=== PATIENT | male | born 1955 | race Caucasian/White ===

== ENCOUNTER → 2017-12-17 | Day surgery (SDC) | payer OTHER ==
[2017-10-31 14:32] VITALS: Ht 175.3 cm; Wt 90.9 kg
[~2017-12-17] VITALS: Ht 175.3 cm; Wt 90.9 kg
[~2017-12-17] MED LIST: ASPCH81X PO; ATOR-24 PO; ATROPINE SULFATE 0.1 MG/ML 5ML SYR IV PRN; BUPIVACAINE 0.5 % 5 MG/1 ML PF 10ML VIAL ONE; CLINDAMYCIN PHOS 150 MG/ML 2 ML VIAL IV SCH; COEN100C7 PO; CYCL10TA6 PO; EpHEDrine SULFATE INJ 50 MG/ML AMP IV PRN; FENTANYL CITRATE INJ 50 MCG/1 ML 2 ML VIAL IV PRN; FENTANYL CITRATE INJ 50 MCG/1 ML 2 ML VIAL ONE; HYDR-3419 PO; LACTATED RINGER'S 1000ML 1,000 ML IV SCH; LEVO125T5 PO; LIDOCAINE HCL 2% 2 ML VIAL (20MG/ML) ONE; LIDOCAINE HCL 2% LOCAL 20 ML VIAL ONE; METO-452 PO; MIDAZOLAM HCL 1 MG/ML 2ML VIAL ONE; MULT-506 PO; ONDANSETRON INJ 2 MG/ML 2 ML VIAL IV PRN; PROPOFOL IV EMULSION 10 MG/ML 20 ML VIAL ONE; SODIUM CHLORIDE 0.9% 1000ML 1,000 ML IV SCH; TRAM-10 PO; VNTHFA/IN INH; ZINC1TAB PO; ZOLP5TAB PO
--- NOTE | 2017-12-17 09:08 | History & Physical Bridge Note ---
H&P Re-Evaluation Bridge Note: I have examined the patient, reviewed the History & Physical and in the interval since the performance of the History & Physical I have noted the following changes of clinical significance: consent obtained .No changes noted
--- NOTE | 2017-12-17 09:09 | Discharge Instructions ---
Discharge Instructions Date of Service Dec 17, 2017. Visit Reason for Visit: Right Wrist Carpal Tunnel Syndrome; Ring Trigger F Discharge Discharge Diagnosis / Problem: same Discharge Goals Goal(s): Decrease discomfort, Improve function Medications Stopped Medications Name(s): fish oil, asa, lipitor stopped x 10 days. Restart Stopped Medication(s): resume all meds Activity Recommendations Activity Limitations: as noted below Lifting Limitations: until after follow-up appointment Exercise/Sports Limitations: until after follow-up appointment May Resume Sexual Activity: after follow-up appointment Shower/Bathe: keep incision dry Driving or Machine Use: resume 1 day after discharge Anesthesia . Post Anesthesia Instructions: If you have had General Anesthesia or IV Sedation: * Do not drive today. * Resume driving when surgeon permits. * Do not make important decisions or sign legal documents today. * Call surgeon for: 1. Temperature elevations greater than 101 degrees F. 2. Uncontrollable pain. 3. Excessive bleeding. 4. Persistent nausea and vomiting. 5. Medication intolerance (nausea, vomiting or rash). * For nausea and vomiting use only clear liquids such as: tea, soda, bouillon until nausea subsides, then gradually increase diet as tolerated. * If you have any concerns or questions, call your surgeon's office. If physician is unavailable and it is an emergency, call 911 or go to the nearest emergency room. . Instructions / Follow-Up Instructions / Follow-Up The following are instructions to follow after minor hand surgery. ACTIVITY RECOMMENDATIONS: * Minimize activity until your first visit after surgery. * No excessive walking, jogging, sports or laboring. * Return to activity is individualized. Most patients are able to return to everyday activities within 2 weeks. * Return to sports or intensive labor usually occurs at 1-2 months. * DRIVING: Driving may be resumed when you feel you have adequate pain control and use of the hand. * BATHING: You may shower or sponge-bathe immediately after surgery. The dressing will need to be covered with a plastic bag or plastic wrap until the dressing is changed on the fourth or fifth day after surgery. Once the dressing has been changed on the fourth or fifth day after surgery, you may shower and get the incision wet. * Wash with regular soap and water. * Do not bathe (submerge the incision), soak, swim or use a hot tub until the incision is completely healed over with normal skin and the doctor has given the OK to proceed. * There is no need to apply any ointments, powders or salves to your incision. * Do not apply alcohol or hydrogen peroxide directly to the incision. Diluted peroxide (50:50 mixture with sterile saline) may be used to clean dried blood from around the incision area. WORK/SCHOOL: * You may return to sedentary work or school when you are feeling comfortable. This is usually 3-7 days after surgery. * Expect increased discomfort with increased activity. Continue to elevate and ice the hand as much as possible. DIET: * Resume previous diet. MEDICATIONS: * You will have a prescription for pain medication and an anti-inflammatory medication after surgery. Use the pain pills for severe pain and the anti-inflammatory for less severe pain. * Once the pain pills have run out, try to use the anti-inflammatory. If this is not effective then contact the office for assistance. * The pain medication may cause nausea, constipation and sleepiness. You should see how they affect you before driving or similar activity. * The anti-inflammatory may cause stomach upset and bleeding. If this occurs, let your doctor know immediately . * Some patients may need blood clot prevention. This can be done with either a pill or a simple shot. Your doctor will advise you on when to begin these medications and how to take them. * Do not take aspirin or other anti-inflammatory products (i.e. Advil or Aleve ) if taking blood thinner medication. * Take a stool softener like Colace or a stimulant like Senokot to prevent constipation. SPECIAL CARE INSTRUCTIONS: ICE: * Do not apply ice directly to the skin. * Use a thin dressing or stockinet between the skin and ice bag. The dressing in place after surgery will suffice. * Apply ice for 20-30 minutes and repeat every 2-4 hours. This is especially important for the first 3-7 days after surgery. * Once the pain improves, use ice as needed. ELEVATION: * Keep your hand elevated at or above the level of your heart as much as possible. * Expect some increased discomfort and swelling if you allow your hand to hang down for any length of time. DRESSING: * Your dressing will be changed 4-5 days after surgery by the physical therapist or physician's bilingual administrative assistant. Leave your dressing intact until this time. * You may then change your dressing daily with clean dry gauze or Band-aids and a soft wrap or stockinet. * Always wash your hands prior to touching the incision area. * Once the stitches are removed, you may leave the wound open to air or cover with a thin bandage. * There is no need to apply any ointments, powders or salves to your incision. * Expect some bloody drainage for the first few days after surgery. * Leave the tape strips in place (if present) for 5-7 days. * The initial dressing after surgery may become soaked with blood or fluid which is normal. You may reinforce your dressing with clean, dry gauze as needed. BRACE: * Bracing is generally not needed after routine hand surgery. THERAPY: * Physical therapy may be prescribed after your surgery. * For carpal tunnel and trigger digit surgery you may begin moving your fingers and wrist immediately after surgery as tolerated. * Be careful to not overuse. * Once the sutures are removed, further range of motion exercises can be performed. * Hand incisions may be very sensitive for a few months after surgery so avoid excessive pressure on the incision. If necessary, use a padded weightlifters' glove. * You may massage the incision with skin cream to make it less sensitive and reduce scarring. * Hand strength usually returns with normal use. * If needed, squeezing a soft sponge or Play-dough may help. * Your doctor will recommend physical therapy if necessary. PROBLEMS/QUESTIONS: * If you have any problems such as severe pain, numbness, tingling or high fevers or if you have any questions, please contact the office at [phone]. * It is not uncommon to have some numbness and tingling after the surgery especially if you have had a nerve block done. This should gradually improve over the first 1- 2 days. If this persists longer or worsens then contact the office. FOLLOW UP VISIT: * If not already scheduled, please call the office at to schedule follow-up appointments for approximately 10 days, 6 weeks and 3 months after surgery. Diet Recommendations Recommended Home Diet: resume previous diet Procedures Procedures Performed: see op note Pending Studies Studies pending at discharge: no Medical Emergencies . Who to Call and When: Medical Emergencies: If at any time you feel your situation is an emergency, please call 911 immediately. . Non-Emergent Contact Non-Emergency issues call your: Specialist Call Non-Emergent contact if: temperature is above 101.5, wound has increased drainage, wound has increased redness, wound has increased pain . . "Provider Documentation" section prepared by Shaji Guzman. .
--- NOTE | 2017-12-17 09:48 | [facility] Post Operative Brief Note ---
Immediate Operative Summary Operative Date Dec 17, 2017. Pre-Operative Diagnosis Right Wrist Carpal Tunnel Syndrome, Right Ring Finger Trigger Finger Post-Operative Diagnosis same Procedure(s) Performed Right Wrist Open Carpal Tunnel Release; Right Ring Trigger Finger Release Surgeon Dr. Ventura Guzman Auto Wrecker Surgeon(s) Jared Liriano PA-C Estimated Blood Loss Trace Findings Consistent with Post-Op Diagnosis Fluids (cc crystalloids) 600cc Specimens none Drains None Anesthesia Type MAC Complication(s) none Disposition Accompanied Pt To Recover: no Overlapping Procedure I was immediately available: during the entire case
[2017-12-17 09:53] VITALS: TEMP 37.3
--- NOTE | 2017-12-17 10:16 | Anesthesia Progress Nt - [facility] ---
Anesthesia Post Op Note Date & Time Dec 17, 2017 at 10:16 Vital Signs Pain Intensity: 0 Vital Signs Past 12 Hours Date Time Temp Pulse Resp B/P (MAP) Pulse Ox O2 Delivery O2 Flow Rate FiO2 12/17/17 09:53 37.3 63 20 125/78 (94) 97 Room Air 12/17/17 08:42 36.2 53 18 131/74 (93) 96 Room Air Notes Mental Status: alert / awake / arousable, participated in evaluation Pt Amnestic to Procedure: Yes Nausea / Vomiting: adequately controlled Pain: adequately controlled Airway Patency, RR, SpO2: stable & adequate BP & HR: stable & adequate Hydration State: stable & adequate Anesthetic Complications: no major complications apparent
[2017-12-17 10:21] VITALS: BP 120/75; PULSE 64; O2SAT 97
--- NOTE | 2017-12-17 10:29 | OPERATIVE REPORT ---
DATE OF OPERATION: 12/17/2017 SURGEON: Shaji Guzman MD ELECTRONICS SCALE TESTER: Jared Liriano PA-C. No resident or fellow available. PREOPERATIVE DIAGNOSES: 1. Right carpal tunnel syndrome. 2. Right trigger finger syndrome, ring finger. POSTOPERATIVE DIAGNOSES: 1. Right carpal tunnel syndrome. 2. Right trigger finger syndrome, ring finger. OPERATION PERFORMED: 1. A1 klever release, right ring finger. 2. Right carpal tunnel release. PERIOPERATIVE SITUATION: Medically cleared male with EMG nerve conduction study, physical exam consistent with the above diagnosis as well as the finger trigger. He also has some other numbness about the elbow and from his neck, but the nerve conduction study was more suggestive of carpal tunnel at the surgical level. He was advised that this may not eliminate all of his symptoms. He also has a history of a complex regional pain syndrome. DESCRIPTION OF PROCEDURE: The patient was appropriately identified, site verified, consent verified, 900 mg of clindamycin confirmed as being given. The right upper extremity was sterilely injected with 10 mL of volume, 5 mL of 0.5% plain Marcaine and 5 mL of 2% plain lidocaine. The carpal tunnel and trigger finger area were injected. The arm was then prepped and draped in usual routine fashion. Tourniquet inflated to 250 mmHg after exsanguination of limb with a rubber Esmarch bandage for a total of about 15-20 minutes. Curvilinear incision was made based on the fourth ray. Sharp dissection carried down through the palmar fascia down to the transverse carpal ligament. This was then incised under direct vision from proximal to distal with care taken to decompress the nerve. The motor takeoff branch was identified and explored. The floor of the carpal canal had no masses. The wound was then irrigated and closed with horizontal 3-0 nylon mattress sutures. The A1 klever release was then performed with a horizontal incision centered over the MCP joint. Blunt dissection down to the flexor mechanism. The A1 klever was then identified from proximal to distal, then incised under direct vision. There was some thickening of the tenosynovium, but no injury to the tendons. The patient then went through an active range of motion and there was no triggering. The wound was then irrigated and closed with horizontal mattress 3-0 nylon suture. Wounds were then dressed with Dermabond, Xeroform, 4 x 4 gauze, and a volar 3-inch fiberglass splint. ESTIMATED BLOOD LOSS: Trace. CRYSTALLOID: 600 mL. No DVT prophylaxis required. No pathology pending. I attest to the content of the Intraoperative Record and any orders documented therein. Any exception s are noted below.
--- NOTE | 2017-12-17 13:00 | [facility] Operative Report ---
Operative Report Operative Date Dec 17, 2017. Pre-Operative Diagnosis Right Wrist Carpal Tunnel Syndrome, Right Ring Finger Trigger Finger Post-Operative Diagnosis Right wrist and ring finger same Procedure(s) Performed Right Wrist Open Carpal Tunnel Release; Right Ring Trigger Finger Release Surgeon Dr. Ventura Guzman Odd Shoe Examiner Surgeon(s) Jared Liriano PA-C Estimated Blood Loss Trace Findings Right wrist carpal tunnel syndrome, trigger digit right ring finger Fluids 600cc Specimens none Drains None Anesthesia Type MAC Complication(s) none Disposition no Indications This 62-year-old white male presented to the office with complaints of right hand numbness and tingling and triggering of his right ring finger. He had tried conservative care measures including activity modification without improvement. He elected to proceed with surgical intervention after being educated about potential risks and outcomes. Preoperative imaging and EMG were obtained. Description of Procedure Patient was taken to the operating room where he was given sedation and local anesthetic. He was prepped and draped in usual sterile fashion. Please see Dr. Guzman's operative report for specifics of the procedure. I was present for the entire case from initial patient positioning through final wound closure. Assistance was provided in tissue retraction, hemostasis, and final wound closure. Patient was taken to phase 2 recovery in satisfactory condition. I attest to the content of the Intraoperative Record and any orders documented therein. Any exceptions are noted below.
== END | disposition home or self-care (01) ==
LOC: X.SURG 08:30
PROVIDERS: ATTEND Physical Medicine & Rehabilitation Sports Medicine
DX: G56.01 Carpal tunnel syndrome, right upper limb (principal); M65.341 Trigger finger, right ring finger; I10 Essential (primary) hypertension; J45.909 Unspecified asthma, uncomplicated; Z88.2 Allergy status to sulfonamides; E78.5 Hyperlipidemia, unspecified; I34.0 Nonrheumatic mitral (valve) insufficiency; E03.9 Hypothyroidism, unspecified; K21.9 Gastro-esophageal reflux disease without esophagitis; Z88.1 Allergy status to other antibiotic agents; Z79.899 Other long term (current) drug therapy